=== PATIENT | female | born 1980 | race African-American/Black ===

== ENCOUNTER 2023-09-26 20:21 | Emergency (ER) | payer OTHER ==
[2023-09-26 20:29] VITALS: BP 124/86; PULSE 67; RESP 18; TEMP 98.4; BMI 34.0
[2023-09-26] MEDS ORDERED: KETOROLAC TROMETHAMINE 30 MG/1 ML VIAL IM ONE (20:54)
[2023-09-26] MEDS ORDERED: KETOROLAC TROMETHAMINE 30 MG/1 ML VIAL ONE (21:14)
== END 2023-09-26 23:10 | disposition home or self-care (01) ==
LOC: JERFT 20:21
PROC: 3E0233Z Introduction of Anti-inflammatory into Muscle, Percutaneous Approach (ICD-10-PCS; principal; 2023-09-26)
DX: M25.561 Pain in right knee (principal); S80.911A Unspecified superficial injury of right knee, initial encounter; W10.8XXA Fall (on) (from) other stairs and steps, initial encounter
CPT/HCPCS: 73562-TC-RT-FY; 99284-25